=== PATIENT | male | born 1965 ===

== ENCOUNTER 2018-06-20 12:58 | Outpatient (CLI) | payer OTHER ==
--- NOTE | 2018-06-20 15:48 | Diagnostic Imaging Report ---
Indication: Urinary frequency, history of urinary tract infections Technique: Grayscale and duplex images of the kidneys, retroperitoneum, and bladder were obtained. Comparison: none Findings: Right kidney measures 11 cm in length. Left kidney measures 11.5 cm in length. Both kidneys demonstrate normal echogenicity. No hydronephrosis. No focal abnormality. Normal inferior vena cava. Bladder is normal, calculated volume 187 mL. Postvoid bladder volume is 7 mL Calculated prostate volume is 42 mL. Impression: Essentially unremarkable exam. Negative for hydronephrosis Calculated post void bladder volume 7 mL.
== END 2018-06-20 14:58 | disposition home or self-care (01) ==
LOC: ULS 12:58
DX: R35.0 Frequency of micturition (principal); Z87.440 Personal history of urinary (tract) infections
CPT/HCPCS: 76770